=== PATIENT | female | born 1970 | race Caucasian/White ===

== ENCOUNTER → 2017-08-20 16:22 | Outpatient (CLI) | payer BC, SELFPAY ==
--- NOTE | 2017-08-20 16:27 | MM_ITS ---
MM Dig screening mamm BI w/CAD CAD Screening COMPARISON: Digital mammograms 05/12/2013 and 04/22/2015 INDICATION: There is a history of breast cancer in patient's grandmother diagnosed after menopause. TECHNIQUE: Standard CC and MLO images were obtained. R2 CAD reviewed. FINDINGS: There are moderate diffuse heterogenic fibroglandular densities in each breast. This lessens the sensitivity of mammography somewhat. There are stable tiny oval density near the axillary tail left breast likely small intramammary node. There is a possible asymmetric density outer quadrant left breast best seen on the CC projection and show somewhat irregular borders. This may be a summation shadow as it is not definitely seen on MLO view but likely is within the subareolar region of the breast. Recommend the patient return for spot compression views of the areas marked on the film and possibly ultrasound as well if this proves to be a true lesion. IMPRESSION: Heterogenic breast density with possible developing asymmetric density left breast BI-RADS Category: 0 Need Additional Imaging Evaluation RECOMMENDED FOLLOW-UP: IMM - IMMEDIATE FOLLOW-UP RECOMMENDED (A letter has been sent to the patient regarding results of the study.)
== END ==
PROVIDERS: Family Provider Family Medicine; PCP Family Medicine; Visit Provider Nurse Practitioner Obstetrics & Gynecology
DX: Z12.31 Encounter for screening mammogram for malignant neoplasm of breast (principal)
CPT/HCPCS: 77067

== ENCOUNTER → 2017-08-28 13:45 | Outpatient (CLI) | payer BC, SELFPAY ==
--- NOTE | 2017-08-28 | US_ITS ---
MM Dig mamm DX unilat LT CAD Left breast ultrasound with axilla COMPARISON: 08/20/2017, 04/22/2015 INDICATION: Follow-up abnormal mammogram ORDERING PHYSICIAN: William Leon MD PATIENT AGE: 47 years TECHNIQUE: Problem solving views of the left breast along with left breast ultrasound. FINDINGS: There is dense fibroglandular tissue with scattered areas of asymmetric density felt to represent fibroglandular tissue. . There is some persistent asymmetric density in the lateral aspect of the left breast. This however is somewhat similar appearance dating back to 04/22/2015 and 05/12/2013 likely related overlying fibroglandular tissue. Rolled views and exaggerated CC view does not confirm the presence of a true nodule. Left breast ultrasound: 8 x 3 mm cyst at 12:00, cluster of small cyst at 1:00 near the nipple measuring 16 x 7 mm together. Hypoechoic area at 10:00 and 5 mm probably related to a cyst. IMPRESSION: Scattered areas of asymmetric density consistent with fibrocystic changes with scattered cysts noted on ultrasound. No suspicious nodules evident. No convincing evidence of malignancy BI-RADS Category: 3 Benign Finding Short Term Follow-up RECOMMENDED FOLLOW-UP: 6M - 6 MONTH FOLLOW-UP Recommend 6 month mammographic and sonographic follow-up of the left breast (A letter has been sent to the patient regarding results of the study.)
== END ==
PROVIDERS: Family Provider Family Medicine; PCP Family Medicine; Visit Provider Nurse Practitioner Obstetrics & Gynecology
DX: R92.2 Inconclusive mammogram (principal)
CPT/HCPCS: 76641; 77065

== ENCOUNTER → 2017-12-25 16:43 | Outpatient (REF) | payer BC, SELFPAY | LOC: LAB 16:43 | PROVIDERS: Visit Provider Nurse Practitioner Obstetrics & Gynecology | DX: N39.0 Urinary tract infection, site not specified (principal) | CPT/HCPCS: 87086; 87088; 87186 ==

== ENCOUNTER → 2018-01-23 17:19 | Outpatient (CLI) | payer BC, SELFPAY ==
[2018-01-23 17:20] LABS: Microscopic, Urine URINE MICROSCOPIC (MICROSCOPIC)
[2018-01-23 17:55] LABS: Appearance,Urine CLEAR (Clear); Bilirubin,Urine Negative (Negative); Blood, Urine 2+ (Negative); Color,Urine YELLOW (Yellow); Glucose,Urine (UA) Negative (Negative); Ketones,Urine Negative (Negative); Leukocyte Esterase,Urine Negative (Negative); Nitrate,Urine Negative (Negative); Protein,Urine Negative (Negative); Specific Gravity, Urine 1.025 (1.005-1.030); Urobilinogen,Urine 0.2 EU/dl (0.2)
[2018-01-23 20:30] LABS: Bacteria,Urine 2+ /lpf; Mucus,Urine 3+ /lpf; RBC,Urine Occasional #/hpf (0-3); Squamous Epithelial Cell,Urine 20-50 #/hpf (0-5); Yeast,Urine Occasional /lpf
== END ==
PROVIDERS: Visit Provider Nurse Practitioner Family
DX: N39.0 Urinary tract infection, site not specified (principal)
CPT/HCPCS: 81001; 87086; 87088; 87186

== ENCOUNTER → 2018-02-11 11:06 | Outpatient (CLI) | payer BC, SELFPAY ==
[2018-02-11 12:12] LABS: Microscopic, Urine URINE MICROSCOPIC (MICROSCOPIC)
[2018-02-11 12:23] LABS: Appearance,Urine CLEAR (Clear); Bilirubin,Urine Negative (Negative); Blood, Urine Negative (Negative); Color,Urine YELLOW (Yellow); Glucose,Urine (UA) Negative (Negative); Ketones,Urine Negative (Negative); Leukocyte Esterase,Urine Negative (Negative); Nitrate,Urine Negative (Negative); PH,Urine 8.5 (5.0-8.5); Protein,Urine Negative (Negative); Specific Gravity, Urine 1.015 (1.005-1.030); Urobilinogen,Urine 0.2 EU/dl (0.2)
[2018-02-11 12:31] LABS: Bacteria,Urine 2+ /lpf
[2018-02-11 13:35] LABS: Anion Gap 11.4 mEq/L (5-15); Blood Urea Nitrogen 6 mg/dL (7-18); Calcium 9.3 mg/dL (8.5-10.1); Carbon Dioxide 34 mmol/L (21.0-32.0); Chloride 101 mmol/L (98-107); Creatinine,Serum 0.87 mg/dL (0.55-1.02); Estimated Glomerular Filt Rate 70 ml/min (>60); GFR (African American) 85 ML/MIN (>60); Glucose 116 mg/dL (74-106); Potassium 3.4 mmoL/L (3.5-5.1); Sodium 143 mmol/L (136-145)
== END ==
PROVIDERS: Physician Assistant; Visit Provider Nurse Practitioner Family
DX: N39.0 Urinary tract infection, site not specified (principal); I10 Essential (primary) hypertension
CPT/HCPCS: 80048; 81001; 87086; 87088; 87186

== ENCOUNTER 2018-02-12 11:50 | Outpatient (CLI) | payer BC, SELFPAY ==
[2018-02-12 12:34] VITALS: BMI 39.4
--- NOTE | 2018-02-12 12:35 | XR_ITS ---
XR chest portable PICC plac HISTORY: ITS.REASON: PICC line placement ORDERING PHYSICIAN: Iris Orellana PATIENT AGE: 47 years COMPARISON: None FINDINGS: The cardiomediastinal silhouette and pulmonary vascularity are within normal limits. The lungs are clear without infiltrates, suspicious nodules, or pleural effusions. PICC line is present from left upper urinary approach with the tip in good position at the distal SVC. No acute bony abnormalities. IMPRESSION: PICC line in good position
[2018-02-12 13:05] VITALS: BP 124/92; PULSE 98; RESP 20; TEMP 36.9; O2SAT 96
[2018-02-12 13:35] VITALS: BP 126/92; PULSE 98; RESP 20; TEMP 36.9; O2SAT 96
[2018-02-12 14:10] VITALS: BP 128/90; PULSE 98; RESP 20; TEMP 36.9; O2SAT 96
[2018-02-12 16:02] LABS: Tobramycin,Peak 11.9 ug/mL (4.0-10.0)
== END 2018-02-12 14:10 | disposition home or self-care (01) ==
LOC: INF 12:04
PROVIDERS: Family Provider Family Medicine; PCP Nurse Practitioner Family; Visit Provider Nurse Practitioner Family
DX: N39.0 Urinary tract infection, site not specified (principal)
CPT/HCPCS: 36569; 71045; 80200; 96365; C1751

== ENCOUNTER → 2018-02-13 06:19 | Outpatient (CLI) | payer BC, SELFPAY ==
--- NOTE | 2018-02-13 06:24 | NM_ITS ---
SPECT MYOCARDIAL PERFUSION SCAN, REST AND STRESS: EXERCISE STRESS: [facility] REVIEW QGS EF AND WALL MOTION EVALUATION: QPS - PERFUSION EVALUATION: HISTORY: Chest pain PROCEDURE: Rest imaging performed after administration of70.78 millicuries Tc MIBI. Dose administered at6:35 a.m., with imaging thereafter. Stress imaging was then performed following7 minutes 20 seconds of exercise stress. The patient achieved a heart [id number] with projected heart rate of149 . Resting BP140/71 with stress 172/80. At maximum exercise stress,31.9 millicuries Tc MIBI administered at8:15 a.m. with [id number] minutes thereafter. FINDINGS: Perfusion Evaluation: The single slice spect images as well as the [facility] bull's-eye data summary were reviewed. Wall Motion and Ejection Fraction Evaluation: Gated SPECT review and analysis used to evaluate these features. There is a 60 % left ventricular ejection fraction. There seems to be good wall motion Stress images reveal decreased activity throughout the anterior wall with both stress and rest. Gated images calculated ejection fraction is 60% with normal wall motion. IMPRESSION: This test is most consistent with breast attenuation. Patient had good exercise capacity with no EKG abnormalities with associated symptoms. Normal ejection fraction normal wall motion. Clinical correlation is still advised
--- NOTE | 2018-02-13 09:31 | HMH.ITSHM ---
crestor rosuvastatin prilosec hydrochlorothiazide
== END ==
PROVIDERS: Family Provider Family Medicine; PCP Nurse Practitioner Family; Visit Provider Internal Medicine
DX: R06.09 Other forms of dyspnea (principal); R07.9 Chest pain, unspecified; R94.31 Abnormal electrocardiogram [ECG] [EKG]; E78.4 Other hyperlipidemia; K21.9 Gastro-esophageal reflux disease without esophagitis; R60.9 Edema, unspecified; Z82.49 Family history of ischemic heart disease and other diseases of the circulatory system
CPT/HCPCS: 78452; 93017; 93306; A9502

== ENCOUNTER 2018-02-13 14:55 | Outpatient (CLI) | payer BC, SELFPAY ==
[2018-02-13 14:51] VITALS: BMI 39.4
[2018-02-13 15:10] LABS: Anion Gap 11.1 mEq/L (5-15); Blood Urea Nitrogen 7 mg/dL (7-18); Calcium 8.5 mg/dL (8.5-10.1); Carbon Dioxide 29 mmol/L (21.0-32.0); Chloride 105 mmol/L (98-107); Creatinine Clearance Estimated 109 mL/min (0-300); Creatinine,Serum 1.01 mg/dL (0.55-1.02); Estimated Glomerular Filt Rate 59 ml/min (>60); GFR (African American) 72 ML/MIN (>60); Glucose 127 mg/dL (74-106); Potassium 3.1 mmoL/L (3.5-5.1); Sodium 142 mmol/L (136-145)
[2018-02-13 16:13] VITALS: BP 114/76; PULSE 88; RESP 18; TEMP 36.6; O2SAT 99
[2018-02-13 16:43] VITALS: BP 119/77; PULSE 87; RESP 18; O2SAT 100
[2018-02-13 17:11] VITALS: BP 116/79; PULSE 84; RESP 18; O2SAT 99
== END 2018-02-13 17:19 | disposition home or self-care (01) ==
LOC: INF 15:05
PROVIDERS: Family Provider Family Medicine; PCP Nurse Practitioner Family; Visit Provider Nurse Practitioner Family
DX: N39.0 Urinary tract infection, site not specified (principal)
CPT/HCPCS: 80048; 80200; 96365

== ENCOUNTER 2018-02-14 14:30 | Outpatient (CLI) | payer BC, SELFPAY ==
[2018-02-14 14:40] VITALS: BP 140/98; PULSE 98; RESP 20; TEMP 36.9; O2SAT 96
[2018-02-14 15:10] VITALS: BP 145/88; PULSE 60; RESP 20; TEMP 37.6; O2SAT 96
[2018-02-14 15:40] VITALS: BP 148/70; PULSE 66; RESP 20; TEMP 37.2; O2SAT 96
== END 2018-02-14 15:45 | disposition home or self-care (01) ==
LOC: INF 14:46
PROVIDERS: Family Provider Family Medicine; PCP Nurse Practitioner Family; Visit Provider Nurse Practitioner Family
DX: N39.0 Urinary tract infection, site not specified (principal)
CPT/HCPCS: 96365

== ENCOUNTER → 2018-02-15 13:28 | Outpatient (CLI) | payer BC, SELFPAY ==
[2018-02-15 13:28] VITALS: BP 116/82; PULSE 80; RESP 18; TEMP 36.8; O2SAT 98
[2018-02-15 13:44] VITALS: BP 117/86; PULSE 87; RESP 18; TEMP 36.6; O2SAT 98; BMI 39.4
== END ==
PROVIDERS: Family Provider Family Medicine; PCP Nurse Practitioner Family; Visit Provider Nurse Practitioner Family
DX: N39.0 Urinary tract infection, site not specified (principal)
CPT/HCPCS: 96365

== ENCOUNTER → 2018-02-16 14:06 | Outpatient (CLI) | payer BC, SELFPAY ==
[2018-02-16 14:06] VITALS: BP 126/87; PULSE 82; RESP 18; TEMP 36.6; O2SAT 98
[2018-02-16 14:18] VITALS: BP 129/83; PULSE 80; RESP 18; TEMP 36.6; O2SAT 98; BMI 40.8
== END ==
PROVIDERS: Family Provider Family Medicine; PCP Nurse Practitioner Family; Visit Provider Nurse Practitioner Family
DX: N39.0 Urinary tract infection, site not specified (principal)
CPT/HCPCS: 96365

== ENCOUNTER 2018-02-17 14:34 | Outpatient (CLI) | payer BC, SELFPAY ==
[2018-02-17 14:42] VITALS: BP 126/73; PULSE 94; RESP 18; TEMP 36.5; O2SAT 98
[2018-02-17 15:12] VITALS: BP 127/71; PULSE 91; RESP 18; O2SAT 97
[2018-02-17 15:50] VITALS: BP 124/76; PULSE 89; RESP 18; O2SAT 98
== END 2018-02-17 15:55 | disposition home or self-care (01) ==
LOC: INF 14:35
PROVIDERS: Family Provider Family Medicine; PCP Nurse Practitioner Family; Visit Provider Nurse Practitioner Family
DX: N39.0 Urinary tract infection, site not specified (principal)
CPT/HCPCS: 96365

== ENCOUNTER 2018-02-18 12:54 | Outpatient (CLI) | payer BC, SELFPAY ==
[2018-02-18 12:56] VITALS: BMI 39.4
[2018-02-18 13:23] LABS: Anion Gap 15.1 mEq/L (5-15); Blood Urea Nitrogen 6 mg/dL (7-18); Calcium 8.9 mg/dL (8.5-10.1); Carbon Dioxide 27 mmol/L (21.0-32.0); Chloride 101 mmol/L (98-107); Creatinine Clearance Estimated 125 mL/min (0-300); Creatinine,Serum 0.88 mg/dL (0.55-1.02); Estimated Glomerular Filt Rate 69 ml/min (>60); GFR (African American) 84 ML/MIN (>60); Glucose 156 mg/dL (74-106); Potassium 3.1 mmoL/L (3.5-5.1); Sodium 140 mmol/L (136-145)
[2018-02-18 13:24] LABS: Tobramycin,Trough 0.2 ug/ml (0-2.0)
[2018-02-18 14:10] VITALS: BP 104/68; PULSE 83; RESP 18; TEMP 36.6; O2SAT 98
[2018-02-18 15:02] VITALS: BP 110/64; PULSE 79; RESP 18; TEMP 36.6; O2SAT 98
[2018-02-18 15:45] VITALS: BP 122/81; PULSE 80; RESP 18; TEMP 36.6; O2SAT 99
== END 2018-02-18 15:45 | disposition home or self-care (01) ==
LOC: INF 12:54
PROVIDERS: Family Provider Family Medicine; PCP Nurse Practitioner Family; Visit Provider Nurse Practitioner Family
DX: N39.0 Urinary tract infection, site not specified (principal)
CPT/HCPCS: 80048; 80200; 96365

== ENCOUNTER 2018-02-19 14:23 | Outpatient (CLI) | payer BC, SELFPAY ==
[2018-02-19 14:43] VITALS: BP 132/71; PULSE 67; RESP 18; TEMP 36.4; O2SAT 97
[2018-02-19 15:13] VITALS: BP 129/74; PULSE 69; RESP 18; O2SAT 98
[2018-02-19 15:43] VITALS: BP 130/72; PULSE 64; RESP 18; O2SAT 98
[2018-02-19 16:05] VITALS: BP 127/70; PULSE 68; RESP 18; O2SAT 98
== END 2018-02-19 16:20 | disposition home or self-care (01) ==
LOC: INF 14:23
PROVIDERS: Family Provider Family Medicine; PCP Nurse Practitioner Family; Visit Provider Nurse Practitioner Family
DX: N39.0 Urinary tract infection, site not specified (principal)
CPT/HCPCS: 96365

== ENCOUNTER 2018-02-20 14:11 | Outpatient (CLI) | payer BC, SELFPAY ==
[2018-02-20 14:39] VITALS: BP 129/71; PULSE 86; RESP 18; TEMP 36.6; O2SAT 98
[2018-02-20 15:15] VITALS: BP 122/76; PULSE 80; RESP 18; TEMP 36.6; O2SAT 98
[2018-02-20 15:50] VITALS: BP 126/74; PULSE 74; RESP 16; TEMP 36.6; O2SAT 97
== END 2018-02-20 15:55 | disposition home or self-care (01) ==
LOC: INF 14:11
PROVIDERS: Family Provider Family Medicine; PCP Nurse Practitioner Family; Visit Provider Nurse Practitioner Family
DX: N39.0 Urinary tract infection, site not specified (principal)
CPT/HCPCS: 96365

== ENCOUNTER 2018-02-21 14:25 | Outpatient (CLI) | payer BC, SELFPAY ==
[2018-02-21 14:40] VITALS: BP 129/74; PULSE 89; RESP 18; O2SAT 97
[2018-02-21 15:10] VITALS: BP 110/68; PULSE 92; RESP 16
[2018-02-21 15:40] VITALS: BP 110/82; PULSE 89; RESP 16
[2018-02-21 15:50] VITALS: BP 114/72; PULSE 89; RESP 18
== END 2018-02-21 16:05 | disposition home or self-care (01) ==
LOC: INF 14:33
PROVIDERS: Family Provider Family Medicine; PCP Nurse Practitioner Family; Visit Provider Nurse Practitioner Family
DX: N39.0 Urinary tract infection, site not specified (principal)
CPT/HCPCS: 96365

== ENCOUNTER 2018-02-26 14:06 | Outpatient (CLI) | payer BC, SELFPAY | END 2018-02-26 14:20 | disposition home or self-care (01) | LOC: INF 14:06 | PROVIDERS: Family Provider Family Medicine; PCP Nurse Practitioner Family; Visit Provider Nurse Practitioner Family | DX: Z45.2 Encounter for adjustment and management of vascular access device (principal) | CPT/HCPCS: 96523 ==

== ENCOUNTER 2018-02-27 10:38 | Outpatient (CLI) | payer BC, SELFPAY | END 2018-02-27 11:20 | disposition home or self-care (01) | LOC: INF 10:38 | PROVIDERS: Family Provider Family Medicine; PCP Nurse Practitioner Family; Visit Provider Nurse Practitioner Obstetrics & Gynecology | DX: N39.0 Urinary tract infection, site not specified (principal); Z45.2 Encounter for adjustment and management of vascular access device | CPT/HCPCS: G0463 ==

== ENCOUNTER → 2018-03-05 09:19 | Outpatient (CLI) | payer BC, SELFPAY ==
[2018-03-05 09:48] LABS: Anion Gap 11.8 mEq/L (5-15); Blood Urea Nitrogen 7 mg/dL (7-18); Calcium 8.8 mg/dL (8.5-10.1); Carbon Dioxide 27 mmol/L (21.0-32.0); Chloride 105 mmol/L (98-107); Creatinine,Serum 0.78 mg/dL (0.55-1.02); Estimated Glomerular Filt Rate 80 ml/min (>60); GFR (African American) 97 ML/MIN (>60); Glucose 137 mg/dL (74-106); Potassium 3.8 mmoL/L (3.5-5.1); Sodium 140 mmol/L (136-145)
== END ==
PROVIDERS: Family Provider Family Medicine; PCP Nurse Practitioner Family; Visit Provider Physician Assistant
DX: R94.30 Abnormal result of cardiovascular function study, unspecified (principal); R06.09 Other forms of dyspnea; R60.9 Edema, unspecified; E78.5 Hyperlipidemia, unspecified; I10 Essential (primary) hypertension; K21.9 Gastro-esophageal reflux disease without esophagitis; R94.39 Abnormal result of other cardiovascular function study; Z82.49 Family history of ischemic heart disease and other diseases of the circulatory system
CPT/HCPCS: 36415; 80048; 83735; 83880

== ENCOUNTER → 2018-03-24 15:23 | Outpatient (CLI) | payer BC, SELFPAY | PROVIDERS: Visit Provider Internal Medicine Cardiovascular Disease | DX: G47.9 Sleep disorder, unspecified (principal); R06.83 Snoring | CPT/HCPCS: 95806 ==

== ENCOUNTER → 2018-03-25 09:11 | Outpatient (CLI) | payer BC, SELFPAY ==
[2018-03-25 09:36] LABS: Alanine Aminotransferase 72 U/L (12-78); Alkaline Phosphatase 98 U/L (46-116); Anion Gap 9.9 mEq/L (5-15); Aspartate Amino Transferase 63 U/L (15-37); Bilirubin,Direct 0.1 mg/dL (0.0-0.2); Bilirubin,Indirect 0.5 mg/dL (0.0-0.9); Bilirubin,Total 0.6 mg/dL (0.2-1.0); Blood Urea Nitrogen 13 mg/dL (7-18); Calcium 9.3 mg/dL (8.5-10.1); Carbon Dioxide 29 mmol/L (21.0-32.0); Chloride 101 mmol/L (98-107); Creatinine,Serum 0.79 mg/dL (0.55-1.02); Estimated Glomerular Filt Rate 79 ml/min (>60); GFR (African American) 95 ML/MIN (>60); Glucose 123 mg/dL (74-106); Potassium 3.9 mmoL/L (3.5-5.1); Sodium 136 mmol/L (136-145); Total Protein,Serum 8.3 gm/dL (6.4-8.2)
== END ==
PROVIDERS: Family Provider Family Medicine; PCP Emergency Medicine; Visit Provider Physician Assistant
DX: I11.0 Hypertensive heart disease with heart failure (principal); I50.33 Acute on chronic diastolic (congestive) heart failure; Z79.899 Other long term (current) drug therapy; R94.5 Abnormal results of liver function studies
CPT/HCPCS: 36415; 80048; 80076

== ENCOUNTER → 2018-03-31 08:20 | Outpatient (CLI) | payer BC, SELFPAY ==
[2018-03-31 10:16] LABS: Chol/HDL Ratio 4.7 (1-3.5); Cholesterol 173 mg/dL (140-200); HDL Cholesterol 37 mg/dL (29-89); LDL Cholesterol 76 mg/dL (0-130); Triglycerides 302 mg/dL (30-200); VLDL Cholesterol 60 mg/dL (0-40)
== END ==
PROVIDERS: PCP Emergency Medicine; Visit Provider Physician Assistant
DX: E78.2 Mixed hyperlipidemia (principal); Z79.899 Other long term (current) drug therapy
CPT/HCPCS: 36415; 80061

== ENCOUNTER → 2018-04-08 13:00 | Outpatient (CLI) | payer BC, SELFPAY ==
--- NOTE | 2018-04-08 13:01 | MM_ITS ---
MM Dig mamm DX unilat LT CAD, US breast LT complete INDICATION: Follow-up abnormal mammogram ORDERING PHYSICIAN: William Leon MD PATIENT AGE: 47 years COMPARISON: 08/28/2017, 08/20/2018, 04/22/2015 TECHNIQUE: Standard images performed along with spot compression views and left breast ultrasound FINDINGS: There is dense fibroglandular tissue which decreases the sensitivity of mammography. Scattered areas of asymmetry are once again noted consistent with asymmetric fibroglandular tissue. No malignant appearing mass or malignant appearing microcalcification is evident. The areas of asymmetry appear stable when compared to the previous exam of 08/28/2017. There is an asymmetric density in the medial aspect of the left breast as seen on the cc view which has been stable dating back 05/22/2013. In the central aspect of left breast slightly superiorly there is a stable 14 mm nodular opacity and may correspond to a complex cyst on the ultrasound. Left breast ultrasound: 6 mm cyst at 12:00,, 14 x 5 mm complex cystic area at 1:00 similar to the previous exam quadrant fall with through transmission of sound 7 mm hypoechoic nodule at 10:00 is unchanged. No suspicious solid lesions evident. IMPRESSION: No change. Benign findings. No convincing evidence of malignancy. Asymmetric densities consistent with asymmetric fibroglandular elements and cystic areas BI-RADS Category: 2 Benign Finding(s) RECOMMENDED FOLLOW-UP: 6M - 6 MONTH FOLLOW-UP (A letter has been sent to the patient regarding results of the study.)
== END ==
PROVIDERS: PCP Emergency Medicine; Visit Provider Nurse Practitioner Obstetrics & Gynecology
DX: R92.8 Other abnormal and inconclusive findings on diagnostic imaging of breast (principal)
CPT/HCPCS: 76641; 77065

== ENCOUNTER → 2018-05-29 08:36 | Outpatient (CLI) | payer BC, SELFPAY | PROVIDERS: PCP Emergency Medicine; Visit Provider Internal Medicine Cardiovascular Disease | DX: E78.5 Hyperlipidemia, unspecified (principal); I11.9 Hypertensive heart disease without heart failure; R60.9 Edema, unspecified | CPT/HCPCS: 93306 ==

== ENCOUNTER → 2018-08-08 08:47 | Outpatient (CLI) | payer BC, SELFPAY ==
[2018-08-08 10:06] LABS: Anion Gap 13.8 mEq/L (5-15); Blood Urea Nitrogen 13 mg/dL (7-18); Calcium 9.6 mg/dL (8.5-10.1); Carbon Dioxide 28 mmol/L (21.0-32.0); Chloride 101 mmol/L (98-107); Creatinine,Serum 0.94 mg/dL (0.55-1.02); Estimated Glomerular Filt Rate 64 ml/min (>60); GFR (African American) 78 ML/MIN (>60); Glucose 109 mg/dL (74-106); Potassium 3.8 mmoL/L (3.5-5.1); Sodium 139 mmol/L (136-145)
== END ==
PROVIDERS: Visit Provider Internal Medicine Cardiovascular Disease
DX: R06.09 Other forms of dyspnea (principal); R60.9 Edema, unspecified; R94.31 Abnormal electrocardiogram [ECG] [EKG]
CPT/HCPCS: 80048

== ENCOUNTER → 2018-08-26 10:14 | Outpatient (CLI) | payer BC, SELFPAY ==
[2018-08-26 10:52] LABS: Blood Urea Nitrogen 8 mg/dL (7-18); Calcium 9.6 mg/dL (8.5-10.1); Carbon Dioxide 25 mmol/L (21.0-32.0); Chloride 102 mmol/L (98-107); Creatinine,Serum 0.93 mg/dL (0.55-1.02); Estimated Glomerular Filt Rate 65 ml/min (>60); GFR (African American) 79 ML/MIN (>60); Glucose 133 mg/dL (74-106); Sodium 140 mmol/L (136-145)
== END ==
PROVIDERS: Visit Provider Internal Medicine Cardiovascular Disease
DX: R06.09 Other forms of dyspnea (principal); R60.9 Edema, unspecified; R94.31 Abnormal electrocardiogram [ECG] [EKG]
CPT/HCPCS: 36415; 80048; 83880

== ENCOUNTER → 2018-09-09 11:03 | Outpatient (CLI) | payer BC, SELFPAY ==
[2018-09-09 11:13] LABS: Basophils % 0.4 % (0.1-2.0); Eosinophils # 0.3 K/mm3 (0.0-0.4); Eosinophils % 3.1 % (0.1-12.0); Hematocrit 41.4 % (37.0-47.0); Hemoglobin 13.5 g/dL (12.2-16.2); Lymphocytes # 3.1 K/mm3 (0.7-4.5); Lymphocytes % 29.7 % (10-50); Mean Corpuscular HGB Conc 32.7 g/dL (31.8-35.4); Mean Corpuscular Volume 85.7 fl (81-99); Mean Platelet Volume 7.2 fl (7.4-10.4); Monocytes # 0.5 K/mm3 (0.1-1.0); Monocytes % 4.5 % (1.7-9.3); Neutrophils # 6.5 K/mm3 (1.8-7.8); Neutrophils % 62.3 % (37.0-80.0); Platelet Count 416 K/mm3 (142-424); Red Blood Count 4.83 M/mm3 (4.20-5.40); Red Cell Distribution Width 14.7 % (11.5-17.5); White Blood Count 10.5 K/mm3 (4.8-10.8)
[2018-09-09 11:18] LABS: Anion Gap 16.4 mEq/L (5-15); Blood Urea Nitrogen 9 mg/dL (7-18); Calcium 9.7 mg/dL (8.5-10.1); Carbon Dioxide 27 mmol/L (21.0-32.0); Chloride 101 mmol/L (98-107); Creatinine,Serum 0.94 mg/dL (0.55-1.02); Estimated Glomerular Filt Rate 64 ml/min (>60); GFR (African American) 78 ML/MIN (>60); Glucose 117 mg/dL (74-106); Potassium 4.4 mmoL/L (3.5-5.1); Sodium 140 mmol/L (136-145)
== END ==
PROVIDERS: Visit Provider Internal Medicine
DX: Z98.61 Coronary angioplasty status (principal)
CPT/HCPCS: 36415; 80048; 85025

== ENCOUNTER → 2018-11-04 14:29 | Outpatient (CLI) | payer BC, SELFPAY ==
--- NOTE | 2018-11-04 14:31 | MM_ITS ---
MM Dig mamm BI DX w/CAD, US breast LT complete INDICATION: Screening breast on the right, 6 month follow-up on the left ORDERING PHYSICIAN: William Leon MD PATIENT AGE: 48 years COMPARISON: 08/20/2017, 04/08/2018, 08/28/2017, 04/22/2015 benign-appearing nodule present in the deep upper outer right breast at 9 mm not significant changed from an older exam of 04/22/2015 may represent a lymph node. Left breast: Asymmetric area of increased density is again noted in the outer aspect of the left breast but does not appear significantly changed. No malignant appearing mass or malignant appearing microcalcification is evident. Spot compression views are obtained TECHNIQUE: Standard images are performed along with a lateral spot compression views and bilateral ultrasound FINDINGS: There is very dense fibroglandular tissue which decreases the sensitivity of mammography. Therefore, correlation with physical exam is of utmost importance. Right breast: Scattered asymmetric fibroglandular elements. No malignant appearing mass or malignant appearing microcalcification is evident. Spot compression view in the CC plane demonstrates a benign-appearing nodular density in the retroareolar region. There are benign-appearing calcifications in the retroareolar region. These may be slightly more numerous compared to an older study of 04/22/2015 probably unchanged from 04/08/2018. Left breast ultrasound: Multiple small cysts present including a 5 mm cyst at 12:00, 9 x 5 mm cyst at 1:00, 5 mm cyst at 2:00, this 6 mm hypoechoic area at 10:00 and 6 mm complex cyst at 11:00. Probably benign. Continued six-month follow-up is suggested IMPRESSION: No convincing evidence of malignancy. There is very dense fibroglandular tissue which requires correlation with physical exam. Scattered areas of asymmetry are not felt to be significantly changed. Asymmetric density in the 1:00 region left breast felt to be related to a complex cyst which is unchanged. There are some calcifications in the retroareolar region on the left. These are loosely clustered and probably benign. There may be somewhat more numerous when compared to older exam of 04/22/2015. Recommend continued six-month follow-up of left breast regarding these calcifications. BI-RADS Category: 3 Probably Benign Finding Short Term Follow-up RECOMMENDED FOLLOW-UP: 6M - 6 MONTH FOLLOW-UP (A letter has been sent to the patient regarding results of the study.)
== END ==
PROVIDERS: PCP Emergency Medicine; Visit Provider Nurse Practitioner Obstetrics & Gynecology
DX: R92.8 Other abnormal and inconclusive findings on diagnostic imaging of breast (principal)
CPT/HCPCS: 76641; 77066

== ENCOUNTER → 2019-03-19 08:46 | Outpatient (CLI) | payer BC, SELFPAY ==
--- NOTE | 2019-03-19 08:49 | MR_ITS ---
PROCEDURE: MR FOOT LT WO/W CON CLINICAL INDICATION: Soft Tissue Mass of Left Foot Enlarging soft tissue mass of the foot COMPARISON: [id number] XR foot LT min 3V from 05/18/2018 TECHNIQUE: Routine multiplanar multi echo sequences are performed without and with gadolinium enhancement. Markers are placed along the dorsal aspect of the foot to parris a soft tissue mass. FINDINGS: There is some mild edema at the head of the 2nd metatarsal which does show some mild enhancement. No obvious fracture or dislocation. Along the dorsal aspect of the foot within the subcutaneous soft tissues there is an area of heterogeneous signal intensity measuring approximately 1.9 cm transverse, 1.5 cm thick, the and 1.9 cm longitudinal. This shows heterogeneous isointensity on T1 signal and heterogeneous increased T2 signal with some cystic changes centrally at 9 mm. This does demonstrate peripheral contrast enhancement peripheral to the cystic component. This is at the dorsal and distal aspect of the junction of the 1st and 2nd cuneiform and along the dorsal 1st intermetatarsal space. No obvious bony involvement. There is a small amount of fluid along the posterior aspect of the posterior subtalar joint. No ligamentous or tendinous abnormalities apparent. There are mild osteoarthritic changes of the 1st metatarsophalangeal junction. There is some some faint subcortical increased T2 signal involving the distal aspect of the 1st metatarsal. IMPRESSION: 1. Heterogeneous soft tissue mass along the dorsal aspect of the foot at the dorsal and proximal 1st intermetatarsal and 1st and 2nd cuneiform junction with a central cystic component and peripheral contrast enhancement. Differential diagnosis would include and inflamed ganglion cyst, abscess, or cystic soft tissue neoplasm 2. Small amount of edema with enhancement of the distal aspect of the 2nd metatarsal. This may be due to developing Freiberg's infarction/avascular necrosis 3. Mild osteoarthritis of the 1st MTP joint with some increase in T2 signal at the subarticular region of the 1st metatarsal Dictated by: Bill Cai MD 03/23/2019 05:33 Electronically signed by Bill Cai MD in [place] 03/23/2019 05:37
--- NOTE | 2019-03-19 10:14 | HMH.ITSHM ---
Current Home Medications as stated by this patient Shannon Donohue or physician relations representative. []CRESTOR ASPIRIN OMEPRAZOLE FUROSEMIDE BISOPROLOL FUMARATE
== END ==
PROVIDERS: PCP Emergency Medicine; Visit Provider Podiatrist
DX: D49.2 Neoplasm of unspecified behavior of bone, soft tissue, and skin (principal); M85.672 Other cyst of bone, left ankle and foot
CPT/HCPCS: 73720; A9576

== ENCOUNTER → 2019-04-27 13:37 | Outpatient (CLI) | payer BC, SELFPAY ==
--- NOTE | 2019-04-27 13:54 | XR_ITS ---
PROCEDURE: XR CHEST 2V CLINICAL HISTORY: HTN, PREOP COMPARISON: [id number] XR chest portable PICC plac from 02/12/2018 FINDINGS: The cardiomediastinal silhouette and pulmonary vascularity are within normal limits. The lungs are clear without infiltrates, suspicious nodules, or pleural effusions. Left-sided PICC has been removed. No acute bony findings. IMPRESSION: No acute findings. Dictated by: Bill Cai MD 04/27/2019 16:27 Electronically signed by Bill Cai MD in [place] 04/27/2019 16:27
[2019-04-27 14:07] LABS: Basophils % 0.2 % (0.1-2.0); Eosinophils # 0.3 K/mm3 (0.0-0.4); Eosinophils % 2.6 % (0.1-12.0); Hematocrit 41.1 % (37.0-47.0); Hemoglobin 13.1 g/dL (12.2-16.2); Lymphocytes # 3.4 K/mm3 (0.7-4.5); Lymphocytes % 34.5 % (10-50); Mean Corpuscular HGB Conc 31.8 g/dL (31.8-35.4); Mean Corpuscular Hemoglobin 27.7 pg (27.0-31.2); Mean Platelet Volume 7.7 fl (7.4-10.4); Monocytes # 0.5 K/mm3 (0.1-1.0); Neutrophils # 5.7 K/mm3 (1.8-7.8); Neutrophils % 57.7 % (37.0-80.0); Platelet Count 412 K/mm3 (142-424); Red Blood Count 4.72 M/mm3 (4.20-5.40); Red Cell Distribution Width 14.4 % (11.5-17.5); White Blood Count 9.9 K/mm3 (4.8-10.8)
--- NOTE | 2019-04-27 14:20 | ECG_ITS ---
APPROVED REPORT Exam: Resting ECG HR:75 bpm ECG Measurements Heart Rate 75 AXES VA 156 P 48 QRSd 90 QRS 51 QT 454 T 94 QTc 506 <Conclusion> Normal sinus rhythm Possible Left atrial enlargement Incomplete RBBB,NDST-T Changes Prolonged QT Abnormal ECG Electronically signed by : Vinh Carmona, 04/27/2019 18:27:13
[2019-04-27 16:16] LABS: Anion Gap 14.1 mEq/L (5-15); Blood Urea Nitrogen 10 mg/dL (7-18); Calcium 8.7 mg/dL (8.5-10.1); Carbon Dioxide 27 mmol/L (21.0-32.0); Chloride 102 mmol/L (98-107); Creatinine,Serum 0.97 mg/dL (0.55-1.02); Estimated Glomerular Filt Rate 62 ml/min (>60); GFR (African American) 75 ML/MIN (>60); Glucose 90 mg/dL (74-106); Potassium 4.1 mmoL/L (3.5-5.1); Sodium 139 mmol/L (136-145)
== END ==
PROVIDERS: Visit Provider Podiatrist
DX: Z01.818 Encounter for other preprocedural examination (principal); D49.2 Neoplasm of unspecified behavior of bone, soft tissue, and skin
CPT/HCPCS: 36415; 71046; 80048; 85025; 93005

== ENCOUNTER → 2019-05-29 13:48 | Outpatient (CLI) | payer BC, SELFPAY ==
--- NOTE | 2019-05-29 13:49 | US_ITS ---
PROCEDURE: MM DIG MAMM BI DX W/CAD CLINICAL INDICATION: Dx Mammogram- Bilateral Follow-up abnormal mammogram COMPARISON: DBAV MAMM DX BILAT W/ADD VIEWS from 01/25/2010 DMSB DIG MAMM-SCREEN MILLICENT from 05/12/2013 DMDBAV DIG MAMM-DX MILLICENT W ADD VIEWS from 04/22/2015 [facility] MM Dig screening mamm BI w/CAD from 08/20/2017 DXLT MM Dig mamm DX unilat LT CAD from 08/28/2017 DXLT MM Dig mamm DX unilat LT CAD from 04/08/2018 DIG MAMM-DX UNI-LT from 11/04/2018 BREASTLT US breast LT complete from 11/04/2018 US BREAST LT COMPLETE from 05/29/2019 TECHNIQUE: Standard images performed along with spot compression views and left breast ultrasound FINDINGS: Dense fibroglandular tissue which decreases the sensitivity of mammography. Right breast: Scattered asymmetries. There is a small cluster of calcifications in the superior aspect of the right breast centrally and are probably benign. Continued follow-up recommended. Asymmetry noted in the inferior aspect of the right breast on the MLO view posteriorly probably related to fibroglandular tissue. Skin fold artifact noted on the right. The area of asymmetric density in the medial aspect of the right breast is not significantly changed. Small cluster of calcifications in the immediate retroareolar region unchanged. Small cluster of calcification noted slightly lateral and posterior to the nipple which have increased in number.. Left breast: Scattered areas of asymmetry once again noted not significantly changed. A cluster of calcifications are once again noted in the left retroareolar region. These do not appear significantly changed since the 2018 exam. Continued six-month follow-up suggested. Left breast ultrasound: 8 x 5 mm hypoechoic nodule at 1 o'clock consistent with a complex cyst unchanged. 5 mm hypoechoic nodule at 2 o'clock consistent with a cyst. Hypoechoic area at 10 o'clock at 5 mm and may be due to small cyst. 5 mm cyst at 11 o'clock. No suspicious nodules evident. IMPRESSION: Dense breast tissue with scattered areas of asymmetry which appear stable. Probably benign calcifications in both breasts. Recommend continued six-month follow-up to confirm 1 year stability. BI-RAD Category: 3 Probably Benign Finding Short Term Follow-up FOLLOW-UP: 6M 6Month Follow-up (A letter has been sent to the patient regarding results of the study.) Dictated by: Bill Cai MD 06/13/2019 08:28 Electronically signed by Bill Cai MD in [place] 06/13/2019 08:28
== END ==
PROVIDERS: PCP Emergency Medicine; Visit Provider Nurse Practitioner Obstetrics & Gynecology
DX: R92.8 Other abnormal and inconclusive findings on diagnostic imaging of breast (principal); N63.22 Unspecified lump in the left breast, upper inner quadrant
CPT/HCPCS: 76641; 77066

== ENCOUNTER → 2019-08-06 06:59 | Outpatient (CLI) | payer SELFPAY ==
--- NOTE | 2019-08-06 06:59 | CT_ITS ---
PROCEDURE: CT ANGIO CORONARY ARTERY CLINCAL INDICATION: HTN,ANGINA,PULMONARY HYPERTENSION,HLD COMPARISON: No exams were available for comparison TECHNIQUE: Bradycardia was achieved with 25 mg metoprolol p.o. in 2.5 mg of metoprolol IV. The patient's heart rate was in the mid 50s. 30 mL Optiray 350 utilized IV for timing bolus followed by 85 mL Optiray 350 bolus injection. Gated helical images obtained. Raw data reformatted images are reviewed.. The axial images obtained with sagittal and coronal reformats. All CT scans at the facility use one or more dose reduction, viz: automated exposure control, ma/kV adjustment per patient size (including targeted exams where dose is matched to indication, i.e. head), or iterative reconstruction technique. FINDINGS: The left main coronary artery, lad, diagonals, circumflex, and op 2 smart general is have an unremarkable appearance. The RCA has an unremarkable appearance giving rise to an unremarkable appearing PDA. Cold dominant supply noted to the inferior septum from the LAD and the PDA. Posterior lateral branch to the left ventricle originates from the PDA and has an unremarkable appearance. No significant stenosis. No anatomic variance. No aneurysms. The are no significant incidental findings apparent. IMPRESSION: Negative CT angiography of the coronary arteries Dictated by: Bill Cai MD 08/10/2019 09:38 Electronically signed by Bill Cai MD in [place] 08/10/2019 09:38
== END ==
PROVIDERS: PCP Emergency Medicine; Visit Provider Internal Medicine Cardiovascular Disease
DX: I50.30 Unspecified diastolic (congestive) heart failure (principal); R07.9 Chest pain, unspecified; R42 Dizziness and giddiness; E78.5 Hyperlipidemia, unspecified; I10 Essential (primary) hypertension
CPT/HCPCS: 75574

== ENCOUNTER → 2020-11-11 14:12 | Outpatient (CLI) | payer BC, SELFPAY | PROVIDERS: Visit Provider Nurse Practitioner Family | DX: N39.0 Urinary tract infection, site not specified (principal) | CPT/HCPCS: 87086; 87088; 87186 ==

== ENCOUNTER → 2021-03-01 08:57 | Outpatient (CLI) | payer BC, SELFPAY ==
--- NOTE | 2021-03-01 09:25 | MM_ITS ---
PROCEDURE: MM DIG SCREENING MAMM BI W/CAD Digital Breast Tomosynthesis Included CLINICAL INDICATION: screening xmg There is a history of breast cancer in patient's grandmother age 53 ,the patient currently is on estrogen. COMPARISON: MG DXLT MM Dig mamm DX unilat LT CAD from 08/28/2017 MG DXLT MM Dig mamm DX unilat LT CAD from 04/08/2018 MG DIG MAMM-DX UNI-LT from 11/04/2018 MG MM DIG MAMM BI DX W/CAD from 05/29/2019 TECHNIQUE: Standard CC and MLO images and 3D Tomosynthesis was obtained. R2 CAD reviewed. FINDINGS: There is a diffusely dense and heterogenic parenchymal bilaterally decreasing the sensitivity of mammography. There is a CAD marking deep to the nipple left breast at the site of a small collection of microcalcifications which were seen previously and they appear to be stable and have benign features. A CAD marking inner quadrant right breast was reviewed and this appears to be benign. There is no new or suspicious lesion in either breast and no suspicious microcalcifications. IMPRESSION: Diffusely dense and heterogenic parenchymal pattern with no suspicious lesions seen BI-RAD Category: 2 Benign Finding(s) FOLLOW-UP: 1YR 1 Year Follow-up (A letter has been sent to the patient regarding results of the study.) Dictated by: Dr. Alberto Sandoval MD 03/16/2021 09:21 Dr. Alberto Sandoval MD in [place] 03/16/2021 09:21
== END ==
PROVIDERS: PCP Emergency Medicine; Visit Provider Nurse Practitioner Obstetrics & Gynecology
DX: Z12.31 Encounter for screening mammogram for malignant neoplasm of breast (principal)
CPT/HCPCS: 77063; 77067

== ENCOUNTER → 2022-09-07 10:55 | Outpatient (CLI) | payer BC, SELFPAY ==
--- NOTE | 2022-09-07 10:55 | MM_ITS ---
PROCEDURE INFORMATION: Exam: MG Bilateral Screening 3D Mammography Exam date and time: 09/07/2022 10:45 AM Age: 52 years old Clinical indication: Screening. Her paternal grandmother had breast cancer. TECHNIQUE: Imaging protocol: Bilateral Screening tomosynthesis and 2D mammography including computer-aided detection (CAD) when performed. COMPARISON: 1. MG MM DIG SCREENING MAMM BI W/CAD 03/01/2021 9:06 AM 2. MG MM DIG MAMM BI DX W/CAD 05/29/2019 2:05 PM 3. MG DIG MAMM-DX UNI-LT 11/04/2018 2:43 PM 4. MG DXLT MM Dig mamm DX unilat LT CAD 04/08/2018 1:09 PM FINDINGS: MAMMOGRAPHY: Breast composition: The breasts are heterogeneously dense, which may obscure small masses. Mass: None. Architectural distortion: None. Calcifications: No suspicious calcifications. Asymmetric density: None. Skin thickening: None. Axillary adenopathy: None. IMPRESSION: No mammographic evidence of malignancy. Annual screening is recommended unless otherwise clinically indicated. ASSESSMENT: BI-RADS Category 1: Negative
== END ==
PROVIDERS: PCP Emergency Medicine; Visit Provider Nurse Practitioner Obstetrics & Gynecology
DX: Z12.31 Encounter for screening mammogram for malignant neoplasm of breast (principal)
CPT/HCPCS: 77063; 77067

== ENCOUNTER → 2022-11-22 12:21 | Outpatient (CLI) | payer BC, SELFPAY ==
[2022-11-22 12:58] LABS: Basophils % 0.3 % (0.1-2.0); Eosinophils # 0.9 K/mm3 (0.0-0.4); Hematocrit 41.1 % (37.0-47.0); Lymphocytes # 3.7 K/mm3 (0.7-4.5); Lymphocytes % 30.2 % (10-50); Mean Corpuscular HGB Conc 31.7 g/dL (31.8-35.4); Mean Corpuscular Hemoglobin 28.3 pg (27.0-31.2); Mean Corpuscular Volume 89.3 fl (81-99); Mean Platelet Volume 8.2 fl (7.4-10.4); Monocytes # 1.4 K/mm3 (0.1-1.0); Monocytes % 11.3 % (1.7-9.3); Neutrophils # 6.2 K/mm3 (1.8-7.8); Neutrophils % 51.1 % (37.0-80.0); Platelet Count 408 K/mm3 (142-424); Red Blood Count 4.61 M/mm3 (4.20-5.40); Red Cell Distribution Width 14.4 % (11.5-17.5); White Blood Count 12.2 K/mm3 (4.8-10.8)
[2022-11-22 13:11] LABS: Alanine Aminotransferase 43 U/L (12-78); Albumin/Globulin Ratio 1.8 (1.1-1.8); Alkaline Phosphatase 92 U/L (38-126); Anion Gap 18.6 mEq/L (5-15); Aspartate Amino Transferase 45 U/L (14-36); Bilirubin,Total 0.4 mg/dl (0.2-1.3); Blood Urea Nitrogen 14 mg/dl (7-17); Calcium 9.6 mg/dl (8.4-10.2); Carbon Dioxide 25 mmol/L (22.0-30.0); Chloride 101 mmol/L (98-107); Chol/HDL Ratio 7.8 (1-3.5); Cholesterol 318 mg/dl (140-200); Estimated Glomerular Filt Rate 66 ml/min (>60); GFR (African American) 80 ML/MIN (>60); Globulin 2.8 g/dL (1.3-3.2); Glucose 107 mg/dl (74-100); HDL Cholesterol 41 mg/dl (40-60); Potassium 4.6 mmoL/L (3.5-5.1); Sodium 140 mmol/L (136-145); Total Protein,Serum 7.8 g/dl (6.3-8.2)
[2022-11-22 13:23] LABS: Direct LDL Cholesterol 149.11 mg/dL (100-129)
[2022-11-22 13:29] LABS: Triglycerides 832 mg/dl (30-150)
== END ==
PROVIDERS: PCP Nurse Practitioner Family; Visit Provider Nurse Practitioner Family
DX: R53.83 Other fatigue (principal); E78.5 Hyperlipidemia, unspecified; I51.89 Other ill-defined heart diseases
CPT/HCPCS: 80053; 80061; 84443; 85025

== ENCOUNTER 2023-01-06 09:49 | Emergency (ER) | payer BC, SELFPAY ==
[2023-01-06 09:50] VITALS: BP 120/65; PULSE 90; RESP 18; TEMP 36.9; O2SAT 98; BMI 38.4
--- NOTE | 2023-01-06 10:01 | EXP.UTC ---
Discharge Plan Disposition Patient Disposition: Home, Self-Care Condition: Good Prescriptions Prescriptions: New methylprednisolone 4 mg Tablets,Dose Pack 4 mg PO DIRECTED Qty: 21 0RF cefdinir 300 mg capsule 300 mg PO BID Qty: 20 0RF guaifenesin [Mucinex] 600 mg tablet extended release 12hr 600 - 1,200 mg PO BIDP PRN (Reason: Congestion) Qty: 30 0RF No Action fluticasone propionate [Flonase Allergy Relief] 50 mcg/actuation spray,suspension 1 spray intranasal DAILY Qty: 16 2RF Rx Instructions: administer into each nostril omega-3 acid ethyl esters [Lovaza] 1 gram capsule 2 cap PO BID Qty: 120 2RF Rx Instructions: Unable to to tolerate Statin CHF, CAD estradiol [Kathrin] 0.1 mg/24 hr patch semiweekly 1 patch TD .Twice weekly Qty: 72 3RF Elmiron 100 mg capsule 100 mg PO BID Qty: 180 3RF losartan 50 mg tablet See Rx Instructions .ROUTE .COMPLEX Qty: 30 6RF Dose Instruction: Take 1 tablet by mouth once daily Rx Instructions: Take 1 tablet by mouth once daily potassium chloride 20 mEq tablet extended release 20 meq PO DAILY Qty: 90 3RF bisoprolol fumarate 10 mg tablet See Rx Instructions .ROUTE .COMPLEX Qty: 90 1RF Dose Instruction: Take 1 tablet by mouth once daily for blood pressure Rx Instructions: Take 1 tablet by mouth once daily for blood pressure omeprazole 40 mg capsule,delayed release(DR/EC) See Rx Instructions .ROUTE .COMPLEX Qty: 90 1RF Dose Instruction: Take 1 capsule by mouth once daily Rx Instructions: Take 1 capsule by mouth once daily spironolactone 50 mg tablet See Rx Instructions .ROUTE .COMPLEX Qty: 90 1RF Dose Instruction: TAKE 1 TABLET BY MOUTH ONCE DAILY IN THE MORNING AND 1/2 (ONE-HALF) TABLET ONCE DAILY IN THE AFTERNOON DIRECTED Rx Instructions: TAKE 1 TABLET BY MOUTH ONCE DAILY IN THE MORNING AND 1/2 (ONE-HALF) TABLET ONCE DAILY IN THE AFTERNOON DIRECTED famotidine 20 mg tablet See Rx Instructions .ROUTE .COMPLEX Qty: 90 1RF Dose Instruction: Take 1 tablet by mouth once daily Rx Instructions: Take 1 tablet by mouth once daily furosemide 40 mg tablet See Rx Instructions .ROUTE .COMPLEX Qty: 180 1RF Dose Instruction: TAKE 1 TABLET BY MOUTH TWICE DAILY FOR FLUID Rx Instructions: TAKE 1 TABLET BY MOUTH TWICE DAILY FOR FLUID albuterol sulfate 90 mcg/actuation HFA aerosol inhaler 1 inh inhalation QID PRN (Reason: wheezing) Qty: 8.5 0RF azithromycin [Zithromax Z-Sandro] 250 mg tablet See Rx Instructions PO .COMPLEX Qty: 6 0RF Rx Instructions: For 250 mg dose pack: take 500 mg today (day 1), then 250 mg for 4 days (days 2-5) PO benzonatate 100 mg capsule 100 mg PO TID PRN (Reason: cough) Qty: 30 0RF prednisone 20 mg tablet 20 mg PO BID 5 Days Qty: 10 0RF fenofibrate 160 mg tablet 160 mg PO HS Qty: 90 3RF Nurtec ODT 75 mg tablet,disintegrating See Rx Instructions .ROUTE .COMPLEX Qty: 15 0RF Dose Instruction: DISSOLVE 1 TABLET BY MOUTH EVERY OTHER DAY Rx Instructions: DISSOLVE 1 TABLET BY MOUTH EVERY OTHER DAY aspirin 81 MG tablet,delayed release (DR/EC) See Rx Instructions .Route .COMPLEX Rx Instructions: TAKE 1 TABLET BY MOUTH AT BEDTIME FOR HEART/BLOOD THINNER Referrals Follow up/Referrals: Vincent Ocasio APRN [Primary Care Provider] - See instructions Activity Restrictions/Add. Instructions Additional Instructions/Restrictions: Drink plenty of fluids. Take tylenol or ibuprofen for pain or fever. Take the medications as directed. Follow up with your regular doctor. GO TO THE ER FOR ANY WORSENING SYMPTOMS Don't start the oral steroids until tomorrow, since you had the shot here today. Clinical Impressions Clinical Impression: Sinusitis Instructions Patient Instructions: DI for Sinusitis, Sinusitis Discharge ED Provider: Nicholas Michael
[2023-01-06 11:07] VITALS: BP 120/65; PULSE 90; RESP 18; TEMP 36.9; O2SAT 98
== END 2023-01-06 11:08 | disposition home or self-care (01) ==
PROVIDERS: Emergency Provider Nurse Practitioner Family; PCP Nurse Practitioner Family
DX: J01.90 Acute sinusitis, unspecified (principal); R60.9 Edema, unspecified
CPT/HCPCS: 96372; 99204; 99212; G0463; J0696

== ENCOUNTER → 2023-04-05 10:56 | Outpatient (CLI) | payer BC, SELFPAY ==
--- NOTE | 2023-04-05 11:01 | CA_ITS ---
APPROVED REPORT EXAM: Comprehensive 2D, Doppler, and color-flow Echocardiogram Production Aide: Amanda Singleton RT(R) Ht: 5 ft 2 in Wt: 212lbs BSA: 1.96 BP: 142/61 mmHg Indications: syncope, DD, CP, edema, ANGELES, obesity 2D Dimensions LVOT 1.89 cm (M/F) 1.5-2.5 LVEF (Cevallos's) 54.20 % F: 54 - 74 LV Volume 107.20 mL F: 46 - 106 LV Volume Index 54.69 mL/m2 F: 29 - 61 LA Volume 23.90 mL LA Volume Index 12.19 mL/m2 (M/F) 16-34 M-Mode Dimensions RVDd 3.19 cm (0.9-2.6) LA Diam 3.93 cm (1.9-4.0) LVDd 4.37 cm (3.5-5.7) Ao Diam 2.17 cm (2.0-3.7) LVDs 3.31 cm (3.5-5.7) IVSd 0.99 cm (0.6-1.1) PWd 0.84 cm (0.6-1.1) EF (Teich) 48.40% FS 24.30% EDV (Teich) 86.30 mL ESV (Teich) 44.50 mL LV Diastology E Decel Time 187.00 (160-240 msec) E/A Ratio 1.3 MED E' 7.80 (< 7 cm/sec) E'/MED E' Ratio 10.68 (>14) LAT E' 10.20 (<10 cm/sec) E/LAT E' Ratio 8.17 (>14) Mitral Valve MV E Max Kadeem. 83.00 (40-130 cm/s) MV A Velocity 66.00 (40-130 cm/s) E/A Ratio 1.26 MV Decel. Time 187.00 (160-240 ms) MV PHT 55.00 ms Left Ventricle The left ventricle is normal size. The left ventricular systolic function is normal. The left ventricular ejection fraction is within the normal range. There is normal left ventricular wall thickness. There is normal LV segmental wall motion. The left ventricular diastolic function is normal. LVEF is 55%. Right Ventricle The right ventricle is mildly dilated. The right ventricular systolic function is normal. Atria The left atrium size is normal. The right atrium size is normal. There is no Doppler evidence of interatrial shunt. Aortic Valve The aortic valve opens well. There is no aortic valvular stenosis. No aortic regurgitation is present. Mitral Valve The mitral valve is normal in structure. No evidence of mitral valve stenosis. Trace mitral regurgitation. Tricuspid Valve The tricuspid valve leaflets are thin and pliable. Trace tricuspid regurgitation. There is insufficient TR jet to estimate RVSP. Pulmonic Valve The pulmonary valve is normal in structure. Trace pulmonic regurgitation. Great Vessels The aortic root is normal in size. The ascending aorta is normal in size. IVC is normal in size and collapses >50% with inspiration. Pericardium There is no pericardial effusion. Other Information Study Quality: Fair Conclusion Normal biventricular systolic function. Mildly dilated RV. No significant valvular stenosis or regurgitation. Electronically signed by : Marlene Fisher MD 04/07/2023 22:01:10
== END ==
PROVIDERS: PCP Nurse Practitioner Family; Visit Provider Internal Medicine
DX: R55 Syncope and collapse (principal)
CPT/HCPCS: 93306

== ENCOUNTER 2023-07-22 15:16 | Outpatient (CLI) | payer BC, SELFPAY | END 2023-07-22 23:59 | LOC: RT 15:17 | PROVIDERS: PCP Nurse Practitioner Family; Visit Provider Physician Assistant | DX: R55 Syncope and collapse (principal) ==

== ENCOUNTER 2023-07-23 09:28 | Outpatient (CLI) | payer BC, SELFPAY | END 2023-07-23 23:59 | LOC: RT 09:29 | PROVIDERS: PCP Nurse Practitioner Family; Visit Provider Physician Assistant | DX: R55 Syncope and collapse (principal) | CPT/HCPCS: 93270 ==

== ENCOUNTER 2023-08-02 07:39 | Outpatient (CLI) | payer BC, SELFPAY ==
--- NOTE | 2023-08-02 07:39 | CA_ITS ---
FINAL REPORT TECHNIQUE: Real-time imaging was performed of the extracranial carotid arteries in transverse and longitudinal planes with color duplex evaluation of blood flow velocity. Spectral analysis was performed. The cervicovertebral arteries were also examined. Stenosis evaluation based on elevated velocity criteria. CLINICAL HISTORY: syncope, dyspnea, chest pain, dizziness FINDINGS: FINDINGS: RIGHT CAROTID: CCA PSV: 131 cm/sec ICA PSV: 141 cm/sec ECA PSV: 153 cm/sec ICA/CCA systolic flow velocity ratio: 1.5 Mild atherosclerotic plaque is noted. Narrowing is classified in the less than 50% category. LEFT CAROTID: CCA PSV: 116 cm/sec ICA PSV: 99 cm/sec ECA PSV: 129 cm/sec ICA/CCA systolic flow velocity ratio: 0.9 Mild atherosclerotic plaque is noted. Narrowing is classified in the less than 50% category. VERTEBRALS: Vertebral arteries are patent with antegrade flow and expected spectral waveforms. IMPRESSION: Less than 50% bilateral carotid artery stenosis. Patent vertebral arteries. Reviewed, Interpreted and Dictated by Mckay Almendarez MD Transcribed by Crystal Tovar Authenticated and [facility]
== END 2023-08-02 23:59 ==
PROVIDERS: PCP Nurse Practitioner Family; Visit Provider Physician Assistant
DX: R55 Syncope and collapse (principal); R42 Dizziness and giddiness; I51.89 Other ill-defined heart diseases; R06.00 Dyspnea, unspecified; R07.9 Chest pain, unspecified
CPT/HCPCS: 93880

== ENCOUNTER 2023-08-29 10:50 | Day surgery (SDC) | payer BC, SELFPAY ==
--- NOTE | 2023-08-29 07:06 | IR_ITS ---
APPROVED REPORT Patient Location: Outpatient Commercial Credit Analyst: DALTON Mejias RT (R) PROCEDURES 1. Pocket formation for Permanent Pacemaker Placement. 2. Placement of an atrial sensing and pacing coil into the right atrial appendage. 3. Placement of a ventricular sensing and pacing coil in the right ventricular apex. 4. Permanent Pacemaker Placement. INDICATION SINUS ARREST, Sick sinus syndrome, Symptomatic bradycardia Informed consent was obtained prior to the procedure. COMPLICATIONS NONE Estimated Blood Loss: LESS THAN 10 ML TECHNIQUE 1% Lidocaine with epinephrine used to anesthetized the left anterior aspect of the chest. Scalpel was used to make the initial cutaneous incision while electrocautery was used to dissect down tinto the fascia. The fascia was lifted off the pectoralis muscle and digitally manipulated creating a pocket for the pacemaker. The patient was then placed in Trendelenburg position and the subclavian vein was accessed twice via the Selinger technique, there are two wires in the vein. A 6 Liberian sheath was placed under fluoroscopic guidance into the subclavian vein over one of the wires while keeping the other wire in place within the subclavian vein. The dilator was removed from the sheath. Using fluoroscopic guidance, the ventricular lead was placed into the right ventricular apex, screwed and secured into place. Electronic interrogation proved acceptable thresholds and voltage within the lead. Using 3-0 silk, the ventricular lead was then secured into place. Lead was secured to the facia using the 3-0 silk. Following this, the sheath was pealed away. An additional 6 Liberian fresh sheath and dilator was placed over the existing wire. Using fluoroscopic guidance, the atrial lead was the placed into the right atrial appendage and screwed and secured in place. Electrical interrogation demonstrated acceptable thresholds and voltage number. The atrial lead was then secured into place using 3-0 silk. 1 gram of Ancef was used to flush the pocket. Following the pacemaker generator being secured to the fascia and in place, Monocryl was used to close the subcutaneous layers while renato were used to close the cutaneous layer. A pressure dressing was placed and the patient was transferred to the postop holding area in stable condition for postoperative care. INTERROGATION Generator Model number: [facility] [id number] Generator Serial number: [id number] Atrial lead model number: Tendril STS 2088TC Atrial lead serial number: [id number] P-wave: 3.7 mV Impedence: 600 Ohms Threshold: 1.5V @ 0.4ms Right Ventricular lead model number: Angel CATES 2088TC Right Ventricular lead serial number: [id number] R-wave: 12.0 mV Impedence: 930 Ohms Threshold: 0.5V @ 0.4ms Pacing Parameters: Mode: DDDR Base/Max Track:60 ppm / 130 ppm No diaphragmatic stimulation at 10 volts. IMPRESSION 1. Successful pocket formation for Permanent Pacemaker Placement. 2. Successful placement of an atrial sensing and pacing coil into the right atrial appendage. 3. Successful placement of a ventricular sensing and pacing coil in the right ventricular apex. 4. Successful permanent Pacemaker Placement. PLAN 1. Postop wound care. Electronically signed by : Robbie Wagner MD 08/30/2023 14:03:33
[2023-08-29 10:54] VITALS: BMI 40.2
[2023-08-29 11:20] LABS: Basophils # 0.1 K/mm3 (0-0.2); Basophils % 0.9 % (0.1-2.0); Eosinophils # 0.7 K/mm3 (0.0-0.4); Eosinophils % 7.3 % (0.1-12.0); Hematocrit 43.2 % (37.0-47.0); Hemoglobin 13.7 g/dL (12.2-16.2); Lymphocytes # 3.3 K/mm3 (0.7-4.5); Mean Corpuscular HGB Conc 31.8 g/dL (31.8-35.4); Mean Corpuscular Hemoglobin 29.2 pg (27.0-31.2); Mean Corpuscular Volume 91.8 fl (81-99); Mean Platelet Volume 7.6 fl (7.4-10.4); Monocytes # 0.6 K/mm3 (0.1-1.0); Neutrophils # 5.3 K/mm3 (1.8-7.8); Neutrophils % 52.9 % (37.0-80.0); Platelet Count 405 K/mm3 (142-424); Red Cell Distribution Width 14.5 % (11.5-17.5); White Blood Count 10.1 K/mm3 (4.8-10.8)
[2023-08-29 11:30] VITALS: PULSE 100
[2023-08-29 11:31] LABS: Chloride 104 mmol/L (98-107); Potassium 4.4 mmoL/L (3.5-5.1); Sodium 137 mmol/L (136-145)
[2023-08-29 11:32] VITALS: BP 119/76; PULSE 100; RESP 18; TEMP 36.6; O2SAT 97
[2023-08-29 11:34] LABS: Anion Gap 9.4 mEq/L (5-15); Blood Urea Nitrogen 19 mg/dl (7-17); Calcium 9.4 mg/dl (8.4-10.2); Carbon Dioxide 28 mmol/L (22.0-30.0); Creatinine Clearance Estimated 87 mL/min (50-200); Estimated Glomerular Filt Rate 47 ml/min (>60); GFR (African American) 57 ML/MIN (>60); Glucose 117 mg/dl (74-100)
[2023-08-29] MEDS: LORazepam 2MG/ML VIAL 2 MG IV (12:16)
--- NOTE | 2023-08-29 12:48 | EXP.ANES.CKL ---
[facility] Disclaimer: The information contained in this section may have been updated after the patient was seen, as this information can be updated by other users. Medical History Abnormal patient-activated cardiac event monitor Sinus pause AVB (atrioventricular block) Dizziness Syncope Chest pain Dyspnea Abnormal cardiovascular stress test Edema ANGELES (dyspnea on exertion) Social History Smoking Status: Never smoker second hand exposure: No alcohol intake: never substance use type: denies use current occupational status: employed Travel in the last 8 weeks: Inside the [place] household members: spouse housing: house current occupational exposures/hazards: No caffeine: Yes [facility] Anesthesia Checklist Patient Identification Patient Identification: Arm Band Structural Data Admitted From: Home Planned Operative Procedure/s: Dual Chamber Pacemaker Consent for Planned Operative Procedure(s) Verified: Yes Verified Documents: Surgical Consent and History and Physical NPO Status Verified Time NPO: 00:00 Additional verifications Anesthesia Reactions: Yes (pt states she wakes up fighting from anesthesia) Hx Blood Transfusions: No Blood Transfusion Reaction: No Airway Assessment Mallampati Score:: Class II C-Spine Mobility Assessed: Yes TMJ Mobility Assessed: Yes Dentition: Good Dentition Neurological Assessment Level of Consciousness: Awake and Alert Anesthesia Plan Anesthesia Risk discussed: Yes Anesthesia Plan: Verified ASA Class: III Anesthesia Type: MAC
[2023-08-29] MEDS: CEFAZOLIN 1GM VIAL 1 GM TP (13:46)
[2023-08-29] MEDS: LIDOCAINE 1% W/EPI 1:100,000 20ML VIAL 20 ML SQ (13:59)
--- NOTE | 2023-08-29 14:47 | XR_ITS ---
FINAL REPORT CLINICAL HISTORY: Confirm pacemaker/AID placement COMPARISON: 04/27/2019 FINDINGS: SINGLE-VIEW CHEST There is cardiomegaly. Left subclavian pacer is identified. The mediastinum is normal. The lungs are clear. There is no pneumothorax. IMPRESSION: Left subclavian pacer.. Reviewed, Interpreted and Dictated by Rex Milton III, MD Transcribed by Margareth Asif Authenticated and [facility]
[2023-08-29 14:59] VITALS: BP 107/60; PULSE 94; PULSE 95; RESP 18; O2SAT 98
[2023-08-29 15:23] VITALS: BP 127/72; PULSE 98; RESP 18; O2SAT 95
[2023-08-29 16:33] VITALS: BP 104/70; PULSE 102; RESP 18; O2SAT 92
[2023-08-29 17:11] VITALS: BP 106/59; PULSE 100; RESP 18; O2SAT 97
== END 2023-08-29 17:17 | disposition home or self-care (01) ==
LOC: CATHLAB 10:52
PROVIDERS: PCP Nurse Practitioner Family; Visit Provider Internal Medicine
DX: I49.5 Sick sinus syndrome (principal); Z79.899 Other long term (current) drug therapy; I44.30 Unspecified atrioventricular block; R94.31 Abnormal electrocardiogram [ECG] [EKG]; E78.2 Mixed hyperlipidemia; R42 Dizziness and giddiness; R55 Syncope and collapse; R07.89 Other chest pain
CPT/HCPCS: 33208; 36415; 71045; 80048; 85025; 99152; 99153; C1785; C1898; J2704

== ENCOUNTER 2024-07-02 09:02 | Day surgery (SDC) | payer BC, SELFPAY ==
[2024-06-30 10:05] VITALS: BMI 41.1
[2024-07-02 09:25] VITALS: BP 116/74; PULSE 110; RESP 18; TEMP 36.1; O2SAT 98
[2024-07-02] MEDS: LACTATED RINGERS 1000ML 1,000 ML 50 ML IV (09:35)
--- NOTE | 2024-07-02 10:17 | EXP.ANES.CKL ---
[facility] Disclaimer: The information contained in this section may have been updated after the patient was seen, as this information can be updated by other users. Medical History Hyperlipidemia GERD (gastroesophageal reflux disease) Diabetes Abnormal patient-activated cardiac event monitor Sinus pause AVB (atrioventricular block) Dizziness Syncope Chest pain Dyspnea Abnormal cardiovascular stress test Edema ANGELES (dyspnea on exertion) Surgical History History of tonsillectomy and adenoidectomy Hx of cholecystectomy H/O total hysterectomy Presence of cardiac pacemaker Family History (Reviewed 07/02/24 @ 09: by Sinai Schmidt RN) Other Heart attack Heart disease Hypertension Lung cancer Social History (Updated 07/02/24 @ 09:26 by Sinai Schmidt RN) Smoking Status: Never smoker second hand exposure: No alcohol intake: never substance use type: denies use current occupational status: employed Travel in the last 8 weeks: None household members: spouse housing: house current occupational exposures/hazards: No caffeine: Yes Have you lived/traveled outside US in past 30 days?: No Contact w/someone who lives/traveled outside US past 30 days?: No Exposure to someone with infectious disease in past 14 days?: No Do you have a fever (greater than 100.4 F or 38 C)?: No Have you tested positive for COVID-19: Yes Exposed to someone with COVID-19 in past 14 days?: No Do you have a sore throat?: No Do you have a cough?: No Do you have any weakness?: No Are you experiencing any nausea/vomitting?: No Do you have any diarrhea?: No Are you experiencing any unusual bleeding?: No Do you have any muscle aches/pain?: No Do you have any abdominal pain?: No Are you experiencing loss of taste or smell?: No [facility] Anesthesia Checklist Patient Identification Patient Identification: Arm Band Structural Data Admitted From: Home Planned Operative Procedure/s: EGD/Colonoscopy Consent for Planned Operative Procedure(s) Verified: Yes Verified Documents: Surgical Consent and History and Physical NPO Status Verified Time NPO: 00:00 Additional verifications Anesthesia Reactions: Yes (pt states she wakes up fighting from anesthesia) Hx Blood Transfusions: No Blood Transfusion Reaction: No Airway Assessment Mallampati Score:: Class II C-Spine Mobility Assessed: Yes TMJ Mobility Assessed: Yes Dentition: Good Dentition Neurological Assessment Level of Consciousness: Awake, Alert and Appropriate Anesthesia Plan Anesthesia Risk discussed: Yes Anesthesia Plan: Verified ASA Class: III Anesthesia Type: MAC
[2024-07-02 10:18] VITALS: O2SAT 99
--- NOTE | 2024-07-02 10:19 | HMH.PROCNOTE ---
[facility] Procedure Note Date: 07/02/24 Time: 10:28 Procedure Note:: Upper Endoscopy Procedure Report: Esophagogastroduodenoscopy with cold biopsies Endoscopost: Watson Aquino II, MD Referring Physician: FRANCES Zelaya Date of Procedure: July 02, 2024 Equipment: Olympus GIF 190 standard upper endoscope Sedation: MAC sedation Indications: Mrs. Donohue is a 53-year-old female who is here for diagnostic upper endoscopy secondary to longstanding GERD/reflux. She has been on omeprazole and famotidine and does get breakthrough heartburn 2-3 times weekly. She does get some right upper quadrant abdominal pain and discomfort and had cholecystectomy at the age of 25. She reports moderate belching and some bloating. She also has had some nausea and early satiety which may be attributable to the metformin. She does report irregular bowel function with constipation that alternates with diarrhea. She reports no dysphagia. Procedure: Prior to the procedure, a history and physical exam was performed, and patient's medications and allergies were reviewed. The risks, benefits and alternatives of the sedation and procedure were discussed with the patient. All questions were answered and informed consent was obtained. The patient was brought to the procedure room. Patient identification and proposed procedure were verified by the physician and the nurse. The patient was placed in a left lateral decubitus position and the scope was passed under direct vision. Throughout the procedure, the patient's blood pressure, pulse, and oxygen saturations were monitored continuously. The upper GI endoscopy was accomplished without difficulty. The patient tolerated the procedure well. Findings: The scope was passed directly into the upper esophagus and advanced to the third portion of the duodenum. The post bulbar duodenum, ampulla and duodenal bulb were normal with normal mucosa and conniventes. The scope was withdrawn through a normal duodenal bulb and pylorus into the stomach. There was minimal reactive gastropathy of the antrum and biopsies were obtained. The body and fundus of the stomach were normal. Upon retroflexion there was a small 1 to 2 cm hiatal hernia. There was a small polyp in the cardia within the hiatal hernia that was biopsied. The scope was then withdrawn into the esophagus. There is no evidence of reflux esophagitis or Duncan's. There was a serrated Z-line and biopsies were obtained. There were some tertiary contractions and evidence of mild esophageal dysmotility. The remainder of the esophageal mucosa was normal. Impression: 1. Nonerosive GERD with mild esophageal dysmotility and small 1 to 2 cm hiatal hernia 2. Small 4 mm gastric polyp in cardia 3. Very mild reactive gastropathy of prepyloric antrum Plan: I will follow-up the biopsies. The patient does have uncomplicated nonerosive GERD. We will discuss additional management. I will proceed with screening colonoscopy.
--- NOTE | 2024-07-02 10:21 | P.HP_ITS ---
History of Present Illness *Admission Date: 07/02/24 *Reason for visit:: Chronic GERD/right upper quadrant abdominal pain for upper endoscopy/screen *History of present illness: Mrs. Donohue is a 53-year-old female who is here for diagnostic upper endoscopy secondary to chronic GERD with breakthrough on omeprazole and famotidine. She has had the GERD for years and never had EGD. Colonoscopy was performed for screening for colon cancer. The examination is deemed medically necessary for EGD and colonoscopy. The patient has been seen, interviewed and examined prior to the procedure by both myself and the anesthesia provider. [facility] Disclaimer: The information contained in this section may have been updated after the patient was seen, as this information can be updated by other users. Medical History Hyperlipidemia GERD (gastroesophageal reflux disease) Diabetes Abnormal patient-activated cardiac event monitor Sinus pause AVB (atrioventricular block) Dizziness Syncope Chest pain Dyspnea Abnormal cardiovascular stress test Edema ANGELES (dyspnea on exertion) Surgical History History of tonsillectomy and adenoidectomy Hx of cholecystectomy H/O total hysterectomy Presence of cardiac pacemaker Family History Other Heart attack Heart disease Hypertension Lung cancer Social History (Updated 07/02/24 @ 09:26 by Sinai Schmidt RN) Smoking Status: Never smoker second hand exposure: No alcohol intake: never substance use type: denies use current occupational status: employed Travel in the last 8 weeks: None household members: spouse housing: house current occupational exposures/hazards: No caffeine: Yes Have you lived/traveled outside US in past 30 days?: No Contact w/someone who lives/traveled outside US past 30 days?: No Exposure to someone with infectious disease in past 14 days?: No Do you have a fever (greater than 100.4 F or 38 C)?: No Have you tested positive for COVID-19: Yes Exposed to someone with COVID-19 in past 14 days?: No Do you have a sore throat?: No Do you have a cough?: No Do you have any weakness?: No Are you experiencing any nausea/vomitting?: No Do you have any diarrhea?: No Are you experiencing any unusual bleeding?: No Do you have any muscle aches/pain?: No Do you have any abdominal pain?: No Are you experiencing loss of taste or smell?: No Other Medical History Have you received the Flu Vaccine for this season: Yes Have you received the Pneumonia Vaccine: No Review of Systems Review of Systems Review of systems (narrative): Negative *Cardiovascular Comments: Negative *Gastrointestinal Comments: Negative *Genitourinary Comments: Negative *Musculoskeletal Comments: Negative *Neurologic Comments: Negative Meds Home Medications and Allergies Home Medications ?Medication ?Instructions ?Recorded ?Confirmed ?Type aspirin 81 mg tablet,delayed See Rx Instructions .Route 05/01/19 07/02/24 History release .COMPLEX Blood thinner rimegepant 75 mg disintegrating 75 mg PO Q OTHER DAY PRN . 05/28/23 07/02/24 History tablet (Nurtec ODT) famotidine 20 mg tablet See Rx Instructions .Route 12/20/23 07/02/24 Rx .COMPLEX #90 tabs fenofibrate 160 mg tablet 160 mg PO DAILY #90 tabs 12/25/23 07/02/24 Rx pentosan polysulfate sodium 100 mg See Rx Instructions .Route 01/28/24 07/02/24 Rx capsule (Elmiron) .COMPLEX #180 caps potassium chloride 20 mEq 20 meq PO DAILY Supplement #90 tabs 02/20/24 07/02/24 Rx tablet,extended release pitavastatin calcium 1 mg tablet 1 mg PO DAILY #90 tabs 04/01/24 07/02/24 Rx (Livalo) nitrofurantoin See Rx Instructions .Route 04/27/24 07/02/24 Rx monohydrate/macrocrystals 100 mg .COMPLEX #90 caps capsule amlodipine 5 mg tablet (Norvasc) 5 mg PO DAILY #30 tabs 05/13/24 07/02/24 Rx blood sugar diagnostic (Blood #50 ea 05/13/24 07/02/24 Rx Glucose Test strips) blood-glucose meter (Blood Glucose #1 ea 05/13/24 07/02/24 Rx Monitoring kit) lancets 30 gauge #100 ea 05/13/24 07/02/24 Rx metformin 500 mg tablet,extended 500 mg PO DAILY #90 tabs 06/17/24 07/02/24 Rx release 24 hr spironolactone 50 mg tablet See Rx Instructions .Route 06/17/24 07/02/24 Rx .COMPLEX #180 tabs sodium,potassium,mag sulfates 17.5 See Rx Instructions PO .COMPLEX 06/22/24 07/02/24 Rx gram-3.13 gram-1.6 gram oral soln #354 mL (Suprep Bowel Prep Kit) furosemide 40 mg tablet 40 mg PO BID 07/02/24 07/02/24 History irbesartan 150 mg tablet 150 mg PO DAILY 07/02/24 07/02/24 History omeprazole 40 mg capsule,delayed 40 mg PO DAILY 07/02/24 07/02/24 History release New Prescriptions to Start Prescriptions: Allergies Allergy/AdvReac Type Severity Reaction Status Date / Time ofloxacin (From FLOXIN) Allergy Intermediate I-HIVES,KAREN Verified 07/02/24 09:18 H Sulfa (Sulfonamide Allergy Intermediate I-HIVES,KAREN Verified 07/02/24 09:18 Antibiotics) (SULFA H (SULFONAMIDE ANTIBIOTICS)) Tetracyclines (TETRACYCLINES) Allergy Intermediate I-HIVES,KAREN Verified 07/02/24 09:18 H codeine AdvReac Vomiting Verified 07/02/24 09:18 crestor Allergy Intermediate Unknown Uncoded 06/30/24 10:04 allergy reaction Exam Data for Last 24 hours Vital signs and Labs for Last 24 Hours: Temp Pulse Resp BP Pulse Ox O2 Del Method O2 Flow Rate 97.0 F L 110 H 18 116/74 98 Nasal Cannula 5 07/02/24 09:25 07/02/24 09:25 07/02/24 09:25 07/02/24 09:25 07/02/24 09:25 07/02/24 10:18 07/02/24 10:18 I & O for Last 24 hours: Intake & Output 06/29/24 06/30/24 07/01/24 07/02/24 23:59 23:59 23:59 23:59 Weight 225 lb *Routine HEENT Exam Head: Present normocephalic Eye: Present EOMI and PERRL ENT: Present mucous membranes moist *Routine Neck Exam Neck: Present supple *Routine Respiratory Exam Respiratory: Present CTA bilaterally *Routine Cardiovascular Exam Cardiovascular: Present RRR *Routine Abdominal Exam Abdominal: Present soft and normoactive bowel sounds; Absent tenderness *Routine Rectal Exam Rectal:: deferred *Routine Genitalia Exam Genitalia:: deferred *Routine Extremities Exam Extremities: Absent cyanosis, clubbing or edema *Routine Skin Exam Skin: Present warm; Absent rash *Routine Neurological Exam Neurological: Present alert and oriented X3 Assessment and Plan *Assessment and plan (1) Chronic GERD: Status: Acute Category: Medical Code(s): K21.9 - Gastro-esophageal reflux disease without esophagitis (2) Colon cancer screening: Status: Acute Category: Medical Code(s): Z12.11 - Encounter for screening for malignant neoplasm of colon Plan A/P: 1. Chronic GERD and screening for colon cancer is the preprocedural diagnosis. The patient has never had EGD or colonoscopy. The patient will be anesthetized/sedated using MAC sedation. The patient has been seen and examined. Cardiac and lung assessment prior to the examination is stable. Proceed with planned EGD and colonoscopy.
--- NOTE | 2024-07-02 10:30 | P.PCN_ITS ---
[facility] Procedure Note Date: 07/02/24 Time: 10:43 Procedure Note:: Colonoscopy Procedure Report: Colonoscopy Endoscopist: Watson Aquino II, MD Referring physician: FRANCES Zelaya Date of Procedure: July 02, 2024 Equipment: Olympus 190 variable stiffness pediatric colonoscope Sedation: MAC sedation Indication: Mrs. Donohue is a 53-year-old female who is here for initial screening colonoscopy. The patient has had some long-term bowel irregularity with alternating constipation and diarrhea. She reports no rectal bleeding, unintentional weight loss or family history of colon cancer. She does have some right upper quadrant abdominal pain and discomfort intermittently (functional intestinal pain) with associated bloating and belching. She had cholecystectomy at the age of 25. Procedure: Prior to the procedure, a history and physical exam was performed, and patient's medications and allergies were reviewed. The risks, benefits and alternatives of the sedation and procedure were discussed with the patient. All questions were answered and informed consent was obtained. The patient was brought to the procedure room. Patient identification and proposed procedure were verified by the physician and the nurse. The patient was placed in a left lateral decubitus position and the scope was passed under direct vision. Throughout the procedure, the patient's blood pressure, pulse, and oxygen saturations were monitored continuously. The colonoscopy was accomplished without difficulty. The patient tolerated the procedure well. Findings: On digital rectal examination there was normal rectal tone. There were no external hemorrhoids. The colonoscope was introduced through the anal canal to the rectum and advanced to the cecum. The ileocecal valve and appendiceal orifice were identified. The scope was advanced a short distance into the ileum which appeared grossly normal. The scope was then withdrawn into the colon. The cecum, ascending and transverse colon and mucosa were grossly normal. There were scattered diverticuli throughout the descending and sigmoid colon (LEFT colon). The rectum itself was normal. Upon retroflexion within the rectum there were grade 1-2 internal hemorrhoids. The preparation was excellent throughout with [place] Preparation Score of 9. The cecal time was 10 minutes. Impression: 1. Left-sided diverticulosis 2. Grade 1-2 internal hemorrhoids Plan: The patient will not require surveillance colonoscopy again for 10 years. I would encourage dietary measures and fiber bowel regimen. I will discuss findings with the patient and family.
[2024-07-02 10:44] VITALS: BP 90/53; PULSE 66; RESP 16; O2SAT 98
[2024-07-02 10:54] VITALS: BP 111/65; PULSE 96; RESP 16; O2SAT 99
[2024-07-02 11:04] VITALS: BP 103/71; PULSE 94; RESP 16; O2SAT 100
[2024-07-02 11:14] VITALS: BP 113/63; PULSE 97; RESP 18; O2SAT 100
[2024-07-03 18:44] LABS: POC Glucose,Bedside 109 (70-110)
== END 2024-07-02 11:32 | disposition home or self-care (01) ==
PROVIDERS: PCP Nurse Practitioner Family; Visit Provider Internal Medicine Gastroenterology
PROC: 0DJ08ZZ Inspection of Upper Intestinal Tract, Via Natural or Artificial Opening Endoscopic (ICD-10-PCS; CPT 45378; principal; 2024-07-02 10:30)
DX: K21.9 Gastro-esophageal reflux disease without esophagitis (principal); R10.9 Unspecified abdominal pain; K59.89 Other specified functional intestinal disorders; Z12.11 Encounter for screening for malignant neoplasm of colon; R11.0 Nausea; R68.81 Early satiety; K22.4 Dyskinesia of esophagus; K44.9 Diaphragmatic hernia without obstruction or gangrene; K31.7 Polyp of stomach and duodenum; K31.9 Disease of stomach and duodenum, unspecified; K57.30 Diverticulosis of large intestine without perforation or abscess without bleeding; K64.8 Other hemorrhoids
CPT/HCPCS: 43239; 45378; 82962; J7120

== ENCOUNTER 2024-11-19 08:27 | Outpatient (CLI) | payer BC, SELFPAY ==
--- OUTSIDE RECORDS SUMMARY | 2024-11-19 08:29 | XMS_ITS | Clinical Summary ---
Author Organization Healthcare Address [address] [place] [address] Care Team Providers Care Negative Notcher Name Role Phone Nba Chua MD Primary Care Provider + [phone] Family History Medical History Relation Name Comments Kidney cancer Other 1 Proteinuria Other 2 Relation Name Status Comments Other 1 Other 2 Social History Tobacco Use Types Packs/Day Years Used Date Smoking Tobacco: Never Comments Unknown Sex and Gender Information Value Date Recorded Sex Assigned at Not on file Legal Sex Female 7:57 PM EDT Gender Identity Not on file Sexual Orientation Not on file Last Filed Vital Signs Vital Sign Reading Time Taken Comments Blood Pressure - - Pulse - - Temperature - - Respiratory Rate - - Oxygen Saturation - - Inhaled Oxygen Concentration - - Weight 86.6 kg (191 lb 0.1 oz) 08/11/2012 11:04 AM EST Height 157.5 cm (5' 2 ) 08/11/2012 11:04 AM EST Body Mass Index 34.94 08/11/2012 11:04 AM EST Plan of Treatment Not on file Care Teams Negative Notcher Relationship Specialty Start Date End Date Nba Chua MD [address] [place] [address] PCP - General 10/21/20
[2024-11-19 09:12] LABS: Basophils % 0.4 % (0.1-2.0); Eosinophils # 0.7 Kmm3 (0.0-0.4); Eosinophils % 7.4 % (0.1-12.0); Hematocrit 37.9 % (37.0-47.0); Hemoglobin 12.7 g/dL (12.2-16.2); Immature Granulocytes # 0.04 10^3uL; Immature Granulocytes % 0.4 %; Lymphocytes # 2.9 K/mm3 (0.7-4.5); Lymphocytes % 32.3 % (10-50); Mean Corpuscular HGB Conc 33.5 g/dL (31.8-35.4); Mean Corpuscular Hemoglobin 28.4 pg (27.0-31.2); Mean Corpuscular Volume 84.8 fl (81-99); Mean Platelet Volume 8.9 fl (7.4-10.4); Monocytes # 0.8 K/mm3 (0.1-1.0); Monocytes % 8.4 % (1.7-9.3); Neutrophils # 4.6 K/mm3 (1.8-7.8); Neutrophils % 51.1 % (37.0-80.0); Nucleated Red Blood Cells # 0 10^3/uL; Nucleated Red Blood Cells % 0 %; Platelet Count 438 K/mm3 (142-424); Red Blood Count 4.47 M/mm3 (4.20-5.40); Red Cell Distribution Width 13.6 % (11.5-17.5); Red Cell Distribution Width-SD 42.3 fL; White Blood Count 9.1 K/mm3 (4.8-10.8)
[2024-11-19 09:41] LABS: Hemoglobin A1C 6.2 % (4.0-6.0)
[2024-11-19 09:55] LABS: Alanine Aminotransferase 23 U/L (12-78); Albumin Level 5.1 g/dl (3.5-5.0); Albumin/Globulin Ratio 2.2 (1.1-1.8); Alkaline Phosphatase 58 U/L (38-126); Anion Gap 13.9 mEq/L (5-15); Aspartate Amino Transferase 34 U/L (14-36); Bilirubin,Total 0.6 mg/dl (0.2-1.3); Blood Urea Nitrogen 15 mg/dl (7-17); Calcium 10.1 mg/dl (8.4-10.2); Carbon Dioxide 26 mmol/L (22.0-30.0); Chloride 101 mmol/L (98-107); Chol/HDL Ratio 3.8 (1-3.5); Cholesterol 171 mg/dl (140-200); Estimated Glomerular Filt Rate 52 ml/min (>60); GFR (African American) 63 ML/MIN (>60); Globulin 2.3 g/dL (1.3-3.2); Glucose 104 mg/dl (74-100); HDL Cholesterol 45 mg/dl (40-60); Potassium 4.9 mmoL/L (3.5-5.1); Sodium 136 mmol/L (136-145); Total Protein,Serum 7.4 g/dl (6.3-8.2); Triglycerides 114 mg/dl (30-150); VLDL Cholesterol 23 mg/dL (0-40)
[2024-11-19 10:06] LABS: Direct LDL Cholesterol 85.61 mg/dL (100-129)
[2024-11-19 10:11] LABS: 25-OH Vitamin D, Total 83.1 ng/mL (30-100)
[2024-11-19 10:24] LABS: Thyroid Stimulating Hormone 2.01 uIU/mL (0.465-4.68)
--- NOTE | 2024-11-19 10:44 | XR_ITS ---
FINAL REPORT TECHNIQUE: Chest PA & Lateral CLINICAL HISTORY: SOB x yrs, swelling, cough COMPARISON: 08/29/2023 FINDINGS: 2 views of the chest were performed. A left subclavian pacemaker is present. The heart size is normal. The mediastinum is within normal limits. There is no acute cardiopulmonary process. There are no pleural effusions. There is no pneumothorax. The bony thorax appears intact. IMPRESSION: No acute cardiopulmonary process. Reviewed, Interpreted and Dictated by Mckay Almendarez MD Transcribed by Scarlet Petersen Authenticated and [facility]
[2024-11-19 11:02] LABS: NT Pro Brain Natriuretic Pep. 44.2 pg/mL (0-125)
== END 2024-11-19 23:59 | disposition home or self-care (01) ==
PROVIDERS: Physician Assistant; PCP Nurse Practitioner Family; Visit Provider Nurse Practitioner Family
DX: E11.22 Type 2 diabetes mellitus with diabetic chronic kidney disease (principal); I12.9 Hypertensive chronic kidney disease with stage 1 through stage 4 chronic kidney disease, or unspecified chronic kidney disease; N18.31 Chronic kidney disease, stage 3a; I44.30 Unspecified atrioventricular block; I45.5 Other specified heart block; Z95.0 Presence of cardiac pacemaker; R60.0 Localized edema; E78.2 Mixed hyperlipidemia; I51.89 Other ill-defined heart diseases; R06.09 Other forms of dyspnea
CPT/HCPCS: 36415; 71046; 80053; 80061; 82088; 82306; 83036; 83735; 83880; 84443; 85025

== ENCOUNTER 2024-12-07 07:55 | Outpatient (CLI) | payer BC, SELFPAY ==
--- OUTSIDE RECORDS SUMMARY | 2024-12-07 07:58 | XMS_ITS | Clinical Summary ---
Author Organization Healthcare Address [address] [place] [address] Care Team Providers Care Talcer Name Role Phone Nba Chua MD Primary Care Provider + [phone] Family History Medical History Relation Name Comments [...] of Treatment Not on file Care Teams Talcer Relationship Specialty Start Date End Date Nba Chua MD [address] [place] [address] PCP - General 10/21/20
--- NOTE | 2024-12-07 08:00 | CA_ITS ---
APPROVED REPORT EXAM: Comprehensive 2D, Doppler, and color-flow Echocardiogram Packaging Clerk: Jennifer Ahmadi CRT Ht: 5 ft 2 in Wt: 219lbs BSA: 1.99 BP: 132/84 mmHg Indications: Shortness of Breath, Diabetes, Fatigue, Hyperlipidemia, pacemaker 2023 2D Dimensions LA Volume 23.30 mL LA Volume Index 11.50 mL/m2 (M/F) 16-34 M-Mode Dimensions RVDd 2.71 cm (0.9-2.6) LA Diam 3.17 cm (1.9-4.0) LVDd 3.82 cm (3.5-5.7) LVDs 2.32 cm (3.5-5.7) IVSd 1.46 cm (0.6-1.1) PWd 0.75 cm (0.6-1.1) EF (Teich) 70.50% FS 39.30% EDV (Teich) 62.70 mL TAPSE 1.87 (<1.7) ESV (Teich) 18.50 mL LV Diastology E Decel Time 173 (160-240 msec) E/A Ratio 0.97 MED A' 12.60 cm/s LAT A' 8.40 cm/s Aortic Valve AO Peak GR. 9.00 mmHg Mitral Valve MV E Max Kadeem. 82.0 (40-130 cm/s) MV A Velocity 85.0 (40-130 cm/s) E/A Ratio 0.97 MV PHT 51.0 ms Pulmonary Valve PV Peak Velocity 94.0 (50-150 cm/s) Tricuspid Valve TR P. Velocity 199.00 cm/s RAP Estimate 10.00 mmHg RVSP 25.80 mmHg Left Ventricle The left ventricle is normal size. The left ventricular systolic function is normal. The left ventricular ejection fraction is within the normal range. There is increased LV wall thickness. There is normal LV segmental wall motion. Transmitral Doppler flow pattern suggests impaired LV relaxation. LVEF is 60%. Right Ventricle The right ventricle is mildly dilated. The right ventricular systolic function is normal. Atria The left atrium size is normal. The right atrium size is normal. There is no Doppler evidence of interatrial shunt. Aortic Valve The aortic valve is mildly thickened. There is no aortic valvular stenosis. No aortic regurgitation is present. Mitral Valve The mitral valve is normal in structure. No evidence of mitral valve stenosis. Trace mitral regurgitation. Tricuspid Valve Tricuspid valve is grossly normal in structure and function. Trace tricuspid regurgitation. There is insufficient TR jet to estimate RVSP. Pulmonic Valve The pulmonary valve is normal in structure. Trace pulmonic regurgitation. Great Vessels The aortic root is normal in size. IVC is normal in size and collapses >50% with inspiration. Pericardium There is no pericardial effusion. Other Information Study Quality: Technically Difficult Conclusion Technically difficult study due to poor acoustic windows. Normal biventricular systolic function. Mild RV dilation. No significant valvular stenosis or regurgitation. Electronically signed by : Marlene Fisher MD 12/09/2024 21:40:36
--- NOTE | 2024-12-07 09:00 | CT_ITS ---
FINAL REPORT TECHNIQUE: Axial imaging of the chest was obtained without contrast using high resolution technique. Reformatted images were also obtained and reviewed.This study was performed with techniques to keep radiation doses as low as reasonably achievable, (ALARA). Individualized dose reduction technique using automated exposure control or adjustment of mA and/or kV according to the patient's size were employed. CLINICAL HISTORY: R06.00 - Dyspnea, unspecified, swelling FINDINGS: In the left chest wall pacemaker is in place resulting in streak artifact. There is no axillary adenopathy. There is no hilar or mediastinal mass or adenopathy. Heart size is normal. There is no pericardial or pleural effusion. No suspicious infiltrate or nodule is identified on lung window images. There is no evidence of bronchiectasis, honeycombing or fibrosis. Limited imaging of the abdomen demonstrates postoperative changes of cholecystectomy. IMPRESSION: No evidence of bronchiectasis, honeycombing or fibrosis. Reviewed, Interpreted and Dictated by Mckay Almendarez MD Transcribed by Lanie Winter Authenticated and [facility]
== END 2024-12-07 23:59 | disposition home or self-care (01) ==
LOC: RT 07:56
PROVIDERS: PCP Nurse Practitioner Family; Visit Provider Physician Assistant
DX: I51.7 Cardiomegaly (principal); I51.89 Other ill-defined heart diseases; E11.9 Type 2 diabetes mellitus without complications; E78.5 Hyperlipidemia, unspecified; Z95.0 Presence of cardiac pacemaker
CPT/HCPCS: 71250; 93306